=== PATIENT | male | born 1950 | race Asian ===

== ENCOUNTER 2019-07-18 12:50 | Outpatient (CLI) | payer MEDICARE, OTHER ==
--- NOTE | 2019-07-18 14:38 | XRay Report ---
ABDOMEN 1 VIEW(S) INDICATION: KUB CONSTIPATION ACUTE COMPARISON: None available. FINDINGS: Bowel gas pattern: Moderate amount of feces is present within the ascending colon. Within normal limi ts. No dilated loops of large or small bowel. Free air: None. Calcified gallstones: None seen. Calcified urinary tract calculi: None seen. Additional Findings: None. Skeletal structures: No acute abnormality. IMPRESSION: 1. No acute findings. Signer Name: Genaro Steward MD Signed: 07/18/2019 2:33 PM Workstation Name: [id number]
== END 2019-07-18 12:51 | disposition home or self-care (01) ==
LOC: SPVIMAG 12:50
PROVIDERS: ATTEND Internal Medicine
DX: K59.00 Constipation, unspecified (principal)
CPT/HCPCS: 74018